=== PATIENT | female | born 1990 | race Caucasian/White ===

== ENCOUNTER 2019-01-07 07:20 | Day surgery (SDC) | payer BC, OTHER ==
[2019-01-07] VITALS (15 sets, daily range): BP systolic 109–142; BP diastolic 59–76; PULSE 82–112; RESP 11–22; Ht 165.1 cm; Wt 101.0 kg
[~2019-01-07] VITALS: Ht 165.1 cm; Wt 101.0 kg
[~2019-01-07 07:20] MED LIST: CEFAZOLIN 2 GM/50 ML (PMX) 50 ML IVPB ONE; SOD CHLORIDE 0.9% 1,000 ML IV SCH
--- NOTE | 2019-01-07 08:22 | PREAC ---
Date/Time of Note Date/Time of Note DATE: 01/07/19 TIME: 08:20 Anesthesia Eval and Record Evaluation Time Pre-Procedure Interview DATE: 01/07/19 TIME: 08:20 Age 28 Sex female NPO: 8 hrs Preoperative diagnosis upper back mass Planned procedure excision of upper back mass Past Medical History Past Medical History: None GI: Obesity Recreational drugs: Marijuana (LAST USED LAST WEEK) Surgery & Anesthesia Issues No known issue Meds Anticoagulation: No Beta Julisa within 24 hr: No Reason Beta Julisa not given: Pt. not on B-Julisa No Active Prescriptions or Reported Meds Current Medications Sodium Chloride 1,000 ml @ 75 mls/hr [id number] IV ; Start 01/07/19 at 06:00; Stop 01/07/19 at 18:00 Meds reviewed: Yes Allergies Coded Allergies: No Known Allergy (Unverified , 01/07/19) Allergies Reviewed: Yes Labs/Studies Labs Reviewed: Reviewed by anesthesiologist (HCG ONLY) test: Negative Pre-procedure Exam Airway: Adequate mouth opening, Adequate thyromental dist Mallampati: Mallampati II Teeth: Normal Lung: Normal Heart: Normal ASA Physical Status ASA physical status: 2 Emergency: None Planned Anesthetic General/MAC: LMA Planned Pain Management Parenteral pain med, Local by surgeon Pre-operative Attestations Prior to commencing anesthesia and surgery, the patient was re-evaluated, there was verification of: *The patient's identity *The results of appropriate recent lab work and preoperative vital signs *The above evaluation not changing prior to induction *Anesthetic plan, risk benefits, alternative and complications discussed with patient/family; questions answered; patient/family understands, accepts and wishes to proceed. ALBAN LIMA January 07, 2019 08:22
[2019-01-07] MEDS ORDERED: MIDAZOLAM 1 MG/ML 2 ML INJ ONE (08:26)
[2019-01-07] MEDS ORDERED: LIDOCAINE 2% (SDV) 5 ML INJ ONE (08:26)
[2019-01-07] MEDS ORDERED: CEFAZOLIN 1 GM INJ ONE (08:26)
[2019-01-07] MEDS ORDERED: PROPOFOL 20 ML ONE (08:26)
[2019-01-07] MEDS ORDERED: FENTAnyl 50 MCG/ML VIAL ONE (08:26)
[2019-01-07] MEDS ORDERED: OXYCODONE/ACETAMINOPHEN (5/325) TAB PO PRN ×2 (08:30)
[2019-01-07] MEDS ORDERED: MEPERIDINE 25 MG INJ IV PRN (08:30)
[2019-01-07] MEDS ORDERED: ONDANSETRON 4 MG INJ IV PRN (08:30)
[2019-01-07] MEDS ORDERED: FENTAnyl 50 MCG/ML VIAL IV PRN ×3 (08:30)
[2019-01-07] MEDS ORDERED: ONDANSETRON 4 MG INJ ONE (09:05)
[2019-01-07] MEDS ORDERED: METOCLOPRAMIDE 10 MG INJ ONE (09:05)
[2019-01-07] MEDS ORDERED: DEXAMETHASONE 4 MG/ML 5 ML INJ ONE (09:05)
[2019-01-07] MEDS ORDERED: FAMOTIDINE 20 MG INJ ONE (09:06)
[2019-01-07] MEDS ORDERED: BUPIVACAINE 0.25% (MPF) 30 ML INJ ONE (09:11)
[2019-01-07] MEDS ORDERED: HYDROCODONE/APAP (5/325) TAB PO ONE (09:30)
--- NOTE | 2019-01-07 09:32 | OPR ---
Date/Time of Note Date/Time of Note DATE: 01/07/19 TIME: 09:29 Operative Report Procedure Date: January 07, 2019 Preoperative Diagnosis upper back tumor Postoperative Diagnosis same Operation/Procedure Performed 1. excision of upper back tumor 6 tumor 7 cm incision 2. localized adjacent tissue transfer with the use of skin flaps 14 sq cm defect in the back 3. therapeutic injection of subcutaneous local anesthesia Surgeon see signature line [employer] Support none Anesthesia Type: general Estimated Blood Loss: 0 - 10 ml's Transfusion none Specimen upper back tumor Grafts/Implants none Complications none Pt Condition Post Procedure: stable Indications This is a 28-year-old female with a upper back tumor. She required surgical excision of the tumor due to his pain. Risks alternatives benefits and per sonally discussed the patient. Potential complications including but not limited to bleeding infection recurrence of the tumor chronic pain due to pressure from tumor and wound dehiscence were discussed the patient. Patient expressed understanding consents to the operation. Procedure Description Patient is taken to the OR and prepped and draped in usual sterile fashion. Surgical time was performed. IV antibiotics given. Transverse incision was made at the 10 blade. Dissection with cautery was carried down to the area of the tumor. The tumor was excised en bloc. Good hemostasis established the surgical field. Due to tissue defect localization to stress with his skin flaps was performed. Multilayer closed with interrupted 3-0 Vicryl and skin yelena. Therapeutic subcutaneous local anesthesia was injected at the incision site. Dry dressings were applied. Rodri JOSHUA January 07, 2019 09:32
--- NOTE | 2019-01-07 13:00 | PAC ---
Date/Time of Note Date/Time of Note DATE: 01/07/19 TIME: 13:00 Post-Anesthesia Notes Post-Anesthesia Note Last documented vital signs Vital Signs Date Temp Pulse Resp B/P (MAP) Pulse Ox O2 O2 Flow FiO2 Time Delivery Rate 01/07/19 98.0 82 20 109/59 97 Room Air 10:31 (76) 01/07/19 8.0 09:29 Activity: WNL Respiratory function: WNL Cardiovascular function: WNL Mental status: Baseline Pain reasonably controlled: Yes Hydration appropriate: Yes Nausea/Vomiting absent: Yes ALBAN LIMA January 07, 2019 13:00
== END 2019-01-07 11:34 | disposition home or self-care (01) ==
LOC: SDS 07:20
PROVIDERS: ATTEND Surgery
DX: D17.1 Benign lipomatous neoplasm of skin and subcutaneous tissue of trunk (principal)
CPT/HCPCS: 14001; 84703; 88307; J0690; J1100; J2250; J2405; J2765; J3010